=== PATIENT | male | born 1980 | race Caucasian/White ===

== ENCOUNTER 2024-10-01 18:14 | Inpatient (IN) | payer BC ==
[~2024-10-01] VITALS: Ht 172.7 cm; Wt 122.6 kg
[2024-10-01 19:04] LABS: HEMATOCRIT 45.2 % (42.0-52.0); HEMOGLOBIN 15.7 g/dl (13.5-17.5); MEAN CORPUSCULAR HEMOGLOBIN 28.6 pg (27.0-33.0); MEAN CORPUSCULAR HGB CONC 34.7 g/dl (32.0-36.5); MEAN CORPUSCULAR VOLUME 82.3 fl (80.0-96.0); PLATELET COUNT, AUTOMATED 241 10^3/uL (150-450); RED BLOOD COUNT 5.49 10^6/uL (4.30-6.10); WHITE BLOOD COUNT 11.2 10^3/uL (4.0-10.0)
[2024-10-01 19:35] LABS: PHENCYCLIDINE URINE NEGATIVE (NEGATIVE)
[2024-10-01 19:36] LABS: AMPHETAMINES LEVEL URINE NEGATIVE (NEGATIVE); BARBITURATES URINE NEGATIVE (NEGATIVE); BENZODIAZEPINES URINE NEGATIVE (NEGATIVE); CANNABINOIDS URINE NEGATIVE (NEGATIVE); COCAINE METABOLITE URINE NEGATIVE (NEGATIVE); METHADONE URINE NEGATIVE (NEGATIVE); OPIATES URINE NEGATIVE (NEGATIVE)
[2024-10-01 19:38] LABS: ETHYL ALCOHOL (ETHANOL) < 0.003 % (0.000-0.010)
[2024-10-01 19:40] LABS: ALBUMIN 4.8 G/DL (3.2-5.2); ALKALINE PHOSPHATASE 74 U/L (40-129); ALT/SGPT 57 U/L (7.0-40); AST/SGOT 41 U/L (<34); BILIRUBIN,DIRECT 0.3 MG/DL (<0.4); BILIRUBIN,TOTAL 0.9 MG/DL (0.3-1.2); BLOOD UREA NITROGEN 12 MG/DL (9-23); CALCIUM LEVEL 8.7 MG/DL (8.5-10.1); CARBON DIOXIDE LEVEL 29 MMOL/L (20-31); CHLORIDE LEVEL 88 MMOL/L (98-107); CK-MB VALUE MASS 1.6 NG/ML (<3.6); CREATININE FOR GFR 0.71 MG/DL (0.70-1.30); GLOMERULAR FILTRATION RATE > 60.0 (>60); GLUCOSE, FASTING 165 MG/DL (60-100); POTASSIUM SERUM 3.3 MMOL/L (3.5-5.1); SALICYLATE LEVEL < 3.0 MG/DL (<30); SODIUM LEVEL 128 MMOL/L (136-145); TOTAL PROTEIN 7.7 G/DL (5.7-8.2)
[2024-10-01 19:44] LABS: CPK CREATINE PHOSPHOKINASE 311 U/L (46-171); MB/CK RELATIVE INDEX 0.51 (< OR =4)
[2024-10-01] MEDS ORDERED: ISOVUE-370 76% 100ML VIAL As Ordered ONE (19:47)
[2024-10-01] MEDS: LABETALOL 100MG/20ML VIAL IV STA ×2 (20:05→20:52)
[2024-10-01] MEDS: POTASSIUM CHLORIDE 10MEQ SR TABLET PO ONE (20:38)
[2024-10-01] MEDS ORDERED: HYDR-3363 PO (21:24)
[2024-10-01] MEDS ORDERED: LEXA1TAB PO (21:24)
[2024-10-01] MEDS ORDERED: CLON-589 PO (21:24)
[2024-10-01] MEDS ORDERED: HOME MED LIST COMPLETE! XX SCH (21:25)
[2024-10-01 21:29] LABS: CK-MB VALUE MASS 2.2 NG/ML (<3.6); MB/CK RELATIVE INDEX 0.73 (< OR =4)
[2024-10-01] MEDS: LORazepam 2 MG/ML 1ML VIAL IV STA (21:37)
[2024-10-01] MEDS ORDERED: hydrALAZINE 20MG/ML 1ML VIAL IV PRN (22:40)
[2024-10-01 23:28] LABS: HDL CHOLESTEROL 40.2 MG/DL (>40); LDL CHOLESTEROL 119.6 MG/DL (<100); NON-HDL-C 160.8 MG/DL
[2024-10-01] MEDS: LR 1,000 ML IV SCH (23:52)
[2024-10-01] MEDS: niCARdipine IV 40 MG in IV 1 EA IV SCH (23:53)
[2024-10-02] VITALS (17 sets, daily range): BP systolic 107–170; BP diastolic 59–99; TEMP 98.9–99.4; O2SAT 95–98
[2024-10-02 05:17] LABS: HEMATOCRIT 40.8 % (42.0-52.0); HEMOGLOBIN 14.4 g/dl (13.5-17.5); MEAN CORPUSCULAR HEMOGLOBIN 29.2 pg (27.0-33.0); MEAN CORPUSCULAR HGB CONC 35.3 g/dl (32.0-36.5); MEAN CORPUSCULAR VOLUME 82.8 fl (80.0-96.0); PLATELET COUNT, AUTOMATED 204 10^3/uL (150-450); RED BLOOD COUNT 4.93 10^6/uL (4.30-6.10)
[2024-10-02 05:48] LABS: BLOOD UREA NITROGEN 11 MG/DL (9-23); CALCIUM LEVEL 8.1 MG/DL (8.5-10.1); CARBON DIOXIDE LEVEL 29 MMOL/L (20-31); CHLORIDE LEVEL 93 MMOL/L (98-107); CREATININE FOR GFR 0.77 MG/DL (0.70-1.30); GLOMERULAR FILTRATION RATE > 60.0 (>60); GLUCOSE, FASTING 130 MG/DL (60-100); POTASSIUM SERUM 3.4 MMOL/L (3.5-5.1); SODIUM LEVEL 130 MMOL/L (136-145)
[2024-10-02] MEDS: POTASSIUM CHLORIDE 10MEQ SR TABLET PO ONE (08:19)
[2024-10-02] MEDS: cloNIDine 0.1MG TABLET PO SCH (08:20)
[2024-10-02] MEDS: ESCITALOPRAM OXALATE 10 MG TAB (LEXAPRO) PO SCH (08:20)
[2024-10-02] MEDS: ENOXAPARIN 40MG/0.4ML SYRINGE (J1650 PER 10MG) SC SCH (08:20)
[2024-10-02] MEDS: DOCUSATE SODIUM 100MG CAPSULE PO SCH (08:33)
[2024-10-02 08:48] LABS: APPEARANCE, URINE HAZY (CLEAR); BACTERIA, URINE AUTO NEGATIVE (NEGATIVE); BILIRUBIN, URINE AUTO NEGATIVE (NEGATIVE); BLOOD, URINE BLOOD 3+ (NEGATIVE); CALCIUM OXALATE CRYSTALS SMALL; COLOR, URINE YELLOW (YELLOW); GLUCOSE, URINE (UA) AUTO 1+ mg/dL (NEGATIVE); KETONE, URINE AUTO NEGATIVE (NEGATIVE); LEUKOCYTE ESTERASE, URINE AUTO NEGATIVE (NEGATIVE); MUCUS, URINE SMALL (NEGATIVE); NITRITE, URINE AUTO NEGATIVE (NEGATIVE); PROTEIN, URINE AUTO 2+ mg/dL (NEGATIVE); RBC, URINE AUTO 49 /HPF (0-3); SPECIFIC GRAVITY URINE AUTO 1.018 (1.002-1.035); SQUAMOUS EPITHELIAL CELL UR AU 0 /HPF (0-6); UROBILINOGEN, URINE AUTO 0.2 mg/dL (0.0-2.0); WBC, URINE AUTO 1 /HPF (0-3)
[2024-10-02 09:06] LABS: SODIUM,RANDOM URINE 42 MMOL/L
[2024-10-02] MEDS: NICOTINE 14 MG/24 HR TRANSDERMAL TD SCH (11:50)
[2024-10-02] MEDS ORDERED: AMLO10TA PO (14:05)
[2024-10-02] MEDS: ATORVASTATIN 20 MG TAB PO SCH (14:10)
[2024-10-03] VITALS: BP 149/70; TEMP 99.1; O2SAT 96
[2024-10-03 04:00] VITALS: BP 151/77; TEMP 98.7; O2SAT 97
[2024-10-03 05:02] LABS: BLOOD UREA NITROGEN 11 MG/DL (9-23); CARBON DIOXIDE LEVEL 31 MMOL/L (20-31); CHLORIDE LEVEL 103 MMOL/L (98-107); CREATININE FOR GFR 0.85 MG/DL (0.70-1.30); GLOMERULAR FILTRATION RATE > 90.0 (>60); GLUCOSE, FASTING 155 MG/DL (60-100); MAGNESIUM LEVEL 2.2 MG/DL (1.8-2.4); POTASSIUM SERUM 3.7 MMOL/L (3.5-5.1); SODIUM LEVEL 141 MMOL/L (136-145)
[2024-10-03] MEDS: ACETAMINOPHEN 325 MG TAB PO PRN (06:19)
[2024-10-03 07:08] VITALS: BP 164/82; TEMP 98.5; O2SAT 95
[2024-10-03 10:14] VITALS: BP 162/70
[2024-10-03] MEDS: **hydrALAZINE** 10 MG TAB PO SCH (10:14)
[2024-10-03 11:52] VITALS: BP 143/70; O2SAT 99
[2024-10-03] MEDS ORDERED: AMLO10TA PO (12:31)
[2024-10-03] MEDS ORDERED: CLON-589 PO (12:31)
[2024-10-03] MEDS ORDERED: HYDR-161 PO (12:31)
[2024-10-03] MEDS ORDERED: LEXA1TAB PO (12:31)
[2024-10-03] MEDS ORDERED: HYDR-3363 PO (12:31)
[2024-10-03] MEDS ORDERED: ATOR1TAB21 PO (12:31)
[2024-10-03] MEDS ORDERED: BLOOKIT XX (12:32)
== END 2024-10-03 13:43 | disposition home or self-care (01) | DRG 199 ==
LOC: M ED 18:14 → M ED INP 22:50 → M ICU 10-02 00:32
PROVIDERS: ADMIT Internal Medicine Pulmonary Disease; ATTEND Student in an Organized Health Care Education/Training Program
DX: I16.9 Hypertensive crisis, unspecified (principal); E87.1 Hypo-osmolality and hyponatremia; E87.6 Hypokalemia; G47.30 Sleep apnea, unspecified; F41.9 Anxiety disorder, unspecified; F31.9 Bipolar disorder, unspecified; E78.5 Hyperlipidemia, unspecified; F32.A Depression, unspecified; Z88.2 Allergy status to sulfonamides; Z88.8 Allergy status to other drugs, medicaments and biological substances; Z79.899 Other long term (current) drug therapy; I10 Essential (primary) hypertension

== ENCOUNTER 2025-01-10 11:01 | Emergency (ER) | payer BC ==
[~2025-01-10] VITALS: Ht 172.7 cm; Wt 116.8 kg
[~2025-01-10 11:01] MED LIST: AMLO-751 PO; ATOR1TAB21 PO; BLOOKIT XX; CLON-589 PO; HYDR-161 PO; HYDR-3363 PO; LEXA1TAB PO
[2025-01-10] MEDS ORDERED: ATOR1TAB19 (11:26)
[2025-01-10] MEDS ORDERED: VALS1TAB67 (11:26)
[2025-01-10] MEDS ORDERED: OXYC-517 (11:26)
[2025-01-10] MEDS ORDERED: IBUP200C27 PO (11:26)
[2025-01-10] MEDS ORDERED: ACET1TAB37 PO (11:26)
[2025-01-10 13:58] LABS: BASO # 0.1 10^3/uL (0.0-0.2); BASO % 0.4 % (0.0-1.0); EOS # 0.1 10^3/uL (0.0-0.5); EOS % 0.9 % (0.0-3.0); LYMPH # 1.9 10^3/uL (1.5-5.0); LYMPH % 12.1 % (24.0-44.0); MONO # 1.1 10^3/uL (0.0-0.8); MONO % 6.9 % (2.0-8.0); NEUTROPHILS # 12.4 10^3/uL (1.5-8.5); NEUTROPHILS % 79.3 % (36.0-66.0); PLATELET COUNT, AUTOMATED 227 10^3/uL (150-450)
[2025-01-10 14:07] LABS: ERYTHROCYTE SEDIMENTATION RATE 51 mm/hr (0-15)
[2025-01-10 14:32] LABS: C REACTIVE PROTEIN QUANTITATIV 6.08 MG/DL (<1.0)
[2025-01-10 14:38] LABS: ALT/SGPT 49 U/L (7.0-40); AST/SGOT 21 U/L (<34); CALCIUM LEVEL 9.4 MG/DL (8.5-10.1); CARBON DIOXIDE LEVEL 28 MMOL/L (20-31); CHLORIDE LEVEL 98 MMOL/L (98-107); CREATININE FOR GFR 0.88 MG/DL (0.70-1.30); GLOMERULAR FILTRATION RATE > 90.0 (>60); POTASSIUM SERUM 4.4 MMOL/L (3.5-5.1); SODIUM LEVEL 137 MMOL/L (136-145)
[2025-01-10] MEDS: ONDANSETRON 4MG 2ML VIAL IV ONE (15:30)
[2025-01-10] MEDS: MORPHINE 2 MG/ML 1 ML VIAL IV PRN (15:52)
[2025-01-10] MEDS ORDERED: CLIN-250 PO (16:21)
[2025-01-10] MEDS ORDERED: HYDR-3715 PO (16:59)
[2025-01-10] MEDS: LIDOCAINE W/EPINEPHrine 1% 20 ML VIAL SC ONE (17:01)
[2025-01-10] MEDS: CLINDAMYCIN 600 MG in IV 1 EA IV ONE (17:02)
[2025-01-10] MEDS ORDERED: MORPHINE 4 MG/ML 1 ML VIAL IV PRN (17:05)
[2025-01-10 17:46] VITALS: TEMP 97.2
[2025-01-10 18:04] VITALS: BP 142/88; O2SAT 98
[2025-01-11] MEDS ORDERED: HYDR-3713 PO (15:27)
[2025-01-11] MEDS ORDERED: CLIN150C17 PO (17:34)
== END 2025-01-10 18:08 | disposition home or self-care (01) ==
LOC: M ED 11:01
DX: L02.416 Cutaneous abscess of left lower limb (principal); I10 Essential (primary) hypertension; G47.33 Obstructive sleep apnea (adult) (pediatric); F31.9 Bipolar disorder, unspecified; Z88.2 Allergy status to sulfonamides; Z88.1 Allergy status to other antibiotic agents; Z79.1 Long term (current) use of non-steroidal anti-inflammatories (NSAID); Z79.2 Long term (current) use of antibiotics; Z79.899 Other long term (current) drug therapy
CPT/HCPCS: 10060; 76870; 76882; 80048; 80076; 83605; 84145; 85025; 85652; 86140; 87040; 87070; 87077; 87186; 87205; 93976; 96365; 96372; 96375; 99284; J0737

== ENCOUNTER 2025-01-11 13:35 | Emergency (ER) | payer BC ==
[~2025-01-11] VITALS: Ht 172.7 cm; Wt 117.6 kg
[~2025-01-11 13:35] MED LIST changes: +ACET1TAB37 PO; +ATOR1TAB19; +CLIN-250 PO; +HYDR-3715 PO; +IBUP200C27 PO; +OXYC-517; +VALS1TAB67
[2025-01-11] MEDS ORDERED: HYDR-3713 PO (15:27)
[2025-01-11] MEDS: CLINDAMYCIN 900 MG in IV 1 EA IV ONE (16:08)
[2025-01-11] MEDS: KETOROLAC 60 MG/2 ML VIAL IM ONE (16:08)
[2025-01-11 16:34] VITALS: BP 128/64; TEMP 97.8; O2SAT 95
[2025-01-11] MEDS ORDERED: CLIN150C17 PO (17:34)
[2025-01-12] MEDS ORDERED: CLON-442 (20:49)
== END 2025-01-11 18:02 | disposition home or self-care (01) ==
LOC: M ED 13:35
DX: Z48.00 Encounter for change or removal of nonsurgical wound dressing (principal); I10 Essential (primary) hypertension; G47.33 Obstructive sleep apnea (adult) (pediatric); F31.9 Bipolar disorder, unspecified; Z88.1 Allergy status to other antibiotic agents; Z88.2 Allergy status to sulfonamides; Z88.8 Allergy status to other drugs, medicaments and biological substances; Z79.1 Long term (current) use of non-steroidal anti-inflammatories (NSAID); Z79.2 Long term (current) use of antibiotics; Z79.899 Other long term (current) drug therapy
CPT/HCPCS: 96372; 96374; 99284; J0737; J1885

== ENCOUNTER 2025-01-12 16:57 | Emergency (ER) | payer BC ==
[~2025-01-12] VITALS: Ht 172.7 cm; Wt 119.4 kg
[~2025-01-12 16:57] MED LIST changes: +CLIN150C17 PO; +HYDR-3713 PO
[2025-01-12] MEDS: KETOROLAC 30 MG/ML 1 ML VIAL IV ONE (20:13)
[2025-01-12] MEDS: CLINDAMYCIN 900 MG in IV 1 EA IV SCH (20:13)
[2025-01-12 20:29] VITALS: TEMP 97.2; O2SAT 97
[2025-01-12] MEDS ORDERED: CLON-442 (20:49)
[2025-01-12 20:56] VITALS: BP 170/89
[2025-01-12 21:14] VITALS: BP 153/78
== END 2025-01-12 21:15 | disposition home or self-care (01) ==
LOC: EEVIPCON 16:57 → M ED 16:57
DX: Z48.00 Encounter for change or removal of nonsurgical wound dressing (principal); I10 Essential (primary) hypertension; Z88.2 Allergy status to sulfonamides; Z88.8 Allergy status to other drugs, medicaments and biological substances; Z88.1 Allergy status to other antibiotic agents; Z79.1 Long term (current) use of non-steroidal anti-inflammatories (NSAID); Z79.899 Other long term (current) drug therapy
CPT/HCPCS: 96365; 99284; J0737; J1885